=== PATIENT | male | born 1980 | race Caucasian/White ===

== ENCOUNTER → 2018-03-03 | Outpatient (CLI) | payer OTHER ==
[~2018-03-03] MED LIST: NONE PER PT
== END ==
LOC: RAD 09:24
PROVIDERS: ATTEND Orthopaedic Surgery
DX: M94.261 Chondromalacia, right knee (principal); R60.0 Localized edema

== ENCOUNTER → 2019-12-03 | Outpatient (CLI) | payer OTHER | END | disposition home or self-care (01) | LOC: RAD 10:08 | PROVIDERS: ATTEND Physician Assistant | DX: M25.461 Effusion, right knee (principal); M93.261 Osteochondritis dissecans, right knee; M71.561 Other bursitis, not elsewhere classified, right knee; R60.9 Edema, unspecified ==

== ENCOUNTER → 2020-08-12 | Outpatient (CLI) | payer OTHER | END | disposition home or self-care (01) | LOC: STAR 15:32 | PROVIDERS: ATTEND Orthopaedic Surgery | DX: Z01.812 Encounter for preprocedural laboratory examination (principal); Z20.828 Contact with and (suspected) exposure to other viral communicable diseases; M93.261 Osteochondritis dissecans, right knee | CPT/HCPCS: 36415; 87635 ==

== ENCOUNTER 2020-08-18 11:30 | Day surgery (SDC) | payer OTHER ==
[~2020-08-18] VITALS: Ht 170.2 cm; Wt 72.0 kg
[~2020-08-18 11:30] MED LIST changes: +BUPIVACAINE/PF 0.5% ONE; +EPINEPHRINE 1 MG/ML, 1ML ONE; +LIDOCAINE/PF 1%-EPI 1:200K, 30 ML ONE
[2020-08-18 11:45] VITALS: BP 122/82
[2020-08-18] MEDS ORDERED: CHLORHEXIDINE 15 ML UDC ONE (11:55)
[2020-08-18] MEDS ORDERED: CHLORHEXIDINE 15 ML UDC MM STA (12:14)
[2020-08-18] MEDS ORDERED: MIDAZOLAM 1 MG/ML, 2ML ONE (12:19)
[2020-08-18] MEDS ORDERED: FENTANYL PF 250 MCG/5ML ONE (12:20)
[2020-08-18] MEDS ORDERED: LACTATED RINGERS 1,000 ML IV SCH (12:30)
[2020-08-18] MEDS ORDERED: CHLORHEXIDINE 15 ML UDC MM ONE (13:00)
[2020-08-18] MEDS ORDERED: ONDANSETRON 2MG/ML, 2ML IVPush PRN (14:30)
[2020-08-18] MEDS ORDERED: ACETAMINOPHEN 325 MG TABLET PO PRN (14:30)
[2020-08-18] MEDS ORDERED: PROMETHAZINE 25 MG SUPP PR PRN (14:30)
[2020-08-18] MEDS ORDERED: OXYcodone 5 MG/5 ML ORAL.SOL UDC PO PRN (14:30)
[2020-08-18] MEDS ORDERED: PROMETHAZINE 25 MG/ML, 1ML IVPush PRN (14:30)
[2020-08-18] MEDS ORDERED: METHOCARBAMOL 1,000 MG in DEXTROSE 5% 100 ML IV PRN (14:30)
[2020-08-18] MEDS ORDERED: ONDANSETRON 2MG/ML, 2ML ONE (15:13)
[2020-08-18] MEDS ORDERED: SUCCINYLCHOLINE 20 MG/ML, 10ML ONE (15:13)
[2020-08-18] MEDS ORDERED: NEOSTIGMINE 1 MG/ML, 10ML ONE (15:13)
[2020-08-18] MEDS ORDERED: ROCURONIUM 10MG/ML,5ML ONE (15:13)
[2020-08-18] MEDS ORDERED: GLYCOPYRROLATE 0.2MG/1ML, 5ML ONE (15:13)
[2020-08-18] MEDS ORDERED: PROPOFOL 10 MG/ML, 20ML ONE (15:13)
[2020-08-18] MEDS ORDERED: CEFAZOLIN 1,000 MG ONE (15:13)
[2020-08-18] MEDS ORDERED: DEXAMETHASONE 4 MG/ML, 1ML ONE (15:13)
[2020-08-18] MEDS ORDERED: FENTANYL PF 100 MCG/2ML ONE ×2 (15:33→15:57)
[2020-08-18] MEDS ORDERED: OXYcodone 5 MG/5 ML ORAL.SOL UDC ONE (15:33)
[2020-08-18] MEDS: FENTANYL PF 100 MCG/2ML IV PRN ×4 (15:35→16:05)
[2020-08-18] MEDS ORDERED: HYDROmorphone 1 MG/ML, 1ML INJ ONE (15:37)
[2020-08-18] MEDS: HYDROmorphone 1 MG/ML, 1ML INJ IVPush PRN ×2 (15:42→15:52)
== END 2020-08-18 17:15 | disposition home or self-care (01) ==
LOC: OUT 11:30
PROVIDERS: ATTEND Orthopaedic Surgery
DX: S83.281A Other tear of lateral meniscus, current injury, right knee, initial encounter (principal); M93.261 Osteochondritis dissecans, right knee; M65.861 Other synovitis and tenosynovitis, right lower leg; M67.51 Plica syndrome, right knee; G89.18 Other acute postprocedural pain; M19.90 Unspecified osteoarthritis, unspecified site; Z79.891 Long term (current) use of opiate analgesic; X58.XXXA Exposure to other specified factors, initial encounter; Y93.89 Activity, other specified; Y92.89 Other specified places as the place of occurrence of the external cause; Y99.8 Other external cause status
CPT/HCPCS: 27415; 29881; 64447; C1762; J0171; J0330; J0690; J1100; J1170; J2250; J2405; J2704; J2710; J3010; J7120

== ENCOUNTER → 2020-09-23 | Outpatient (CLI) | payer OTHER ==
[~2020-09-23] MED LIST changes: -BUPIVACAINE/PF 0.5% ONE; -EPINEPHRINE 1 MG/ML, 1ML ONE; -LIDOCAINE/PF 1%-EPI 1:200K, 30 ML ONE
== END | disposition home or self-care (01) ==
LOC: RAD 15:32
PROVIDERS: ATTEND Orthopaedic Surgery
DX: R22.41 Localized swelling, mass and lump, right lower limb (principal); M79.661 Pain in right lower leg